=== PATIENT | female | born 1940 | race Caucasian/White ===

== ENCOUNTER → 2016-09-27 | Outpatient (CLI) | payer OTHER | END | disposition home or self-care (01) | DX: M16.12 Unilateral primary osteoarthritis, left hip (principal); M25.552 Pain in left hip; M25.652 Stiffness of left hip, not elsewhere classified; M79.89 Other specified soft tissue disorders | CPT/HCPCS: 97110 GP; 97150 GO; 97161 GP; 97165 GO; G8978 GP; G8979 GP; G8980 GP; G8987 GO; G8988 GO; G8989 GO ==

== ENCOUNTER 2016-10-25 09:14 | Inpatient (IN) | payer OTHER ==
[~2016-10-25] VITALS: Ht 157.5 cm; Wt 98.2 kg
[~2016-10-25 09:14] MED LIST: ALEVE220 MG PO; CRANBERRY TABL1 EACH PO; HYDROCHLOROTHIA25 MG PO; VITAMIN D-32000 UNI2 PO; VITAMIN E400 UNIT PO
[2016-10-25 10:16] VITALS: BP 133/63
[2016-10-25 16:01] LABS: HEMATOCRIT 32.6 % (36.0-46.0); MCH 30.6 PG (29.0-34.0); MCV 87.4 FL (83-99); MEAN PLAT.VOLUME 10.1 uM^3 (9.5-12.4); PLATELET COUNT 260 K/uL (156-360); RBC DIS.WIDTH-CV 13.4 % (11.8-14.6); RBC DIS.WIDTH-SD 42.9 % (39-53); RED BLOOD COUNT 3.73 M/uL (3.80-5.20)
[2016-10-25 16:11] LABS: WHITE BLOOD COUNT 13.1 K/uL (4.1-10.2)
[2016-10-25 20:21] VITALS: BP 140/60
[2016-10-26] VITALS (8 sets, daily range): BP systolic 85–110; BP diastolic 52–58
[2016-10-26 06:24] LABS: ANION GAP 9 MEQ/L (2-14); CHLORIDE 96 MEQ/L (99-109); GFR ESTIMATE (CALCULATED) > 59 mL/min/; GLUCOSE 114 mg/dL (70-99); SAMPLE HEMOLYSIS CHECK 0; SAMPLE ICTERIC CHECK 0; SAMPLE LIPEMIA CHECK 0; SODIUM 129 MEQ/L (136-147); UREA NITROGEN (BUN) 11 mg/dL (9-23)
[2016-10-26 15:57] LABS: HEMATOCRIT 28.3 % (36.0-46.0); MCV 85.5 FL (83-99)
[2016-10-27 05:47] LABS: HEMATOCRIT 28.2 % (36.0-46.0); MCV 87.9 FL (83-99)
[2016-10-27 06:14] LABS: ANION GAP 8 MEQ/L (2-14); CHLORIDE 97 MEQ/L (99-109); GFR ESTIMATE (CALCULATED) 57 mL/min/; GLUCOSE 92 mg/dL (70-99); POTASSIUM 4.2 MEQ/L (3.7-5.4); SAMPLE HEMOLYSIS CHECK 0; SAMPLE ICTERIC CHECK 0; SAMPLE LIPEMIA CHECK 0; SODIUM 133 MEQ/L (136-147); UREA NITROGEN (BUN) 18 mg/dL (9-23)
[2016-10-27 07:50] VITALS: BP 98/50
[2016-10-27] MEDS ORDERED: DOCUSATE SODIU100 MG PO (09:32)
[2016-10-27] MEDS ORDERED: CELECOXIB200 MG PO (09:33)
[2016-10-27] MEDS ORDERED: TRAMADOL HCL50 MG PO (09:33)
[2016-10-27] MEDS ORDERED: SODIUM CHLORIDE1 G1 PO (09:33)
[2016-10-27] MEDS ORDERED: LOVENOX40 MG/0.4 SC (09:33)
[2016-10-27 15:30] VITALS: BP 102/60
== END 2016-10-27 15:45 | disposition home health service (06) | DRG 470 ==
LOC: 2SOUTH 09:14 → 3EAST 09:14 → 2SOUTH 09:25 → 3EAST 19:29
PROVIDERS: Orthopaedic Surgery; Physician Assistant
PROC: 0SRB02A Replacement of Left Hip Joint with Metal on Polyethylene Synthetic Substitute, Uncemented, Open Approach (ICD-10-PCS; principal; 2016-10-25)
DX: M16.12 Unilateral primary osteoarthritis, left hip (principal); E87.1 Hypo-osmolality and hyponatremia
CPT/HCPCS: 73501; 76000; 80048; 84295; 85014; 85018; 85027; J0330; J0690; J1170; J1650; J2405; J3010; J7050; P9045

== ENCOUNTER 2017-09-11 21:59 | Inpatient (IN) | payer OTHER ==
[~2017-09-11] VITALS: Ht 160 cm; Wt 49.8 kg
[~2017-09-11 21:59] MED LIST changes: +CELECOXIB200 MG PO; +DOCUSATE SODIU100 MG PO; +LOVENOX40 MG/0.4 SC; +SODIUM CHLORIDE1 G1 PO; +TRAMADOL HCL50 MG PO
[2017-09-12] MEDS ORDERED: MAGNESIUM27 MG PO (08:06)
[2017-09-12 08:10] VITALS: BP 147/69
[2017-09-12] MEDS ORDERED: HYDROCHLOROTHIA25 MG PO (08:20)
[2017-09-12 13:17] LABS: HEMATOCRIT 37.3 % (36.0-46.0); MCH 30.5 PG (29.0-34.0); MCHC 34.3 G/DL (30.0-36.0); MCV 88.8 FL (83-99); MEAN PLAT.VOLUME 9.9 uM^3 (9.5-12.4); PLATELET COUNT 234 K/uL (156-360); RBC DIS.WIDTH-CV 14.4 % (11.8-14.6); RBC DIS.WIDTH-SD 46.5 % (39-53); WHITE BLOOD COUNT 15.3 K/uL (4.1-10.2)
[2017-09-12 14:03] VITALS: BP 112/60
[2017-09-12 15:49] VITALS: BP 117/59
[2017-09-12 20:14] VITALS: BP 131/62
[2017-09-13 00:06] VITALS: BP 94/54
[2017-09-13 04:52] VITALS: BP 103/54
[2017-09-13 06:53] LABS: ANION GAP 6 MEQ/L (2-14); CHLORIDE 102 MEQ/L (99-109); GFR ESTIMATE (CALCULATED) > 59 mL/min/; GLUCOSE 109 mg/dL (70-99); POTASSIUM 4.3 MEQ/L (3.7-5.4); SAMPLE HEMOLYSIS CHECK 0; SAMPLE ICTERIC CHECK 0; SAMPLE LIPEMIA CHECK 0; SODIUM 133 MEQ/L (136-147); UREA NITROGEN (BUN) 10 mg/dL (9-23)
[2017-09-13 08:00] VITALS: BP 101/54
[2017-09-13] MEDS ORDERED: LOVENOX40 MG/0.4 SC (11:44)
[2017-09-13] MEDS ORDERED: CELECOXIB200 MG PO (11:44)
[2017-09-13] MEDS ORDERED: HYDROCODON-ACE1 EAC7 PO (11:44)
[2017-09-13] MEDS ORDERED: SENNA PLUS TAB1 EACH PO (11:45)
[2017-09-13 12:16] VITALS: BP 91/44
[2017-09-13 16:02] VITALS: BP 109/58
== END 2017-09-13 16:38 | disposition home health service (06) | DRG 468 ==
LOC: ENRESERV 21:59 → 2SOUTH 09-12 06:31 → 3WEST 09-12 13:51 → 2SOUTH 09-12 14:42 → 3WEST 09-13 16:38
PROVIDERS: Orthopaedic Surgery
DX: T84.091A Other mechanical complication of internal left hip prosthesis, initial encounter (principal); Y79.2 Prosthetic and other implants, materials and accessory orthopedic devices associated with adverse incidents; I10 Essential (primary) hypertension
CPT/HCPCS: 73501; 80048; 85027; 93005; C1713; J0690; J1170; J1650; J2250; J3010; J7030; J7050